=== PATIENT | male | born 1975 | race Caucasian/White ===

== ENCOUNTER → 2017-01-06 | Emergency (ER) | payer SELFPAY | END | disposition left against medical advice (07) | LOC: EDUNIT# 17:33 → ER 17:35 | DX: S80.862A Insect bite (nonvenomous), left lower leg, initial encounter (principal); Z53.21 Procedure and treatment not carried out due to patient leaving prior to being seen by health care provider ==

== ENCOUNTER 2017-01-09 14:01 | Emergency (ER) | payer BC, OTHER ==
[~2017-01-09] VITALS: Ht 190.5 cm; Wt 127.0 kg
[2017-01-09 15:25] LABS: BASOPHILS # (AUTO) 0.1 10^3/uL (0.0-0.1); BASOPHILS % (AUTO) 0 % (0-10); EOSINOPHILS % (AUTO) 9 % (0-10); LYMPHOCYTES # (AUTO) 3.3 X 10^3 (1.0-4.0); LYMPHOCYTES % (AUTO) 28 % (12-44); MEAN CORPUSCULAR HEMOGLOBIN 30 PG (25-34); MEAN CORPUSCULAR HGB CONC 34 G/DL (32-36); MEAN CORPUSCULAR VOLUME 89 FL (80-99); MEAN PLATELET VOLUME 10.7 FL (7.4-10.4); MONOCYTES # (AUTO) 0.8 X 10^3 (0.0-1.0); MONOCYTES % (AUTO) 7 % (0-12); NEUTROPHILS # (AUTO) 6.4 X 10^3 (1.8-7.8); NEUTROPHILS % (AUTO) 55 % (42-75); PLATELET COUNT 305 10^3/uL (130-400); RED BLOOD COUNT 5.72 10^6/uL (4.35-5.85); RED CELL DISTRIBUTION WIDTH 13.5 % (10.0-14.5); WHITE BLOOD COUNT 11.6 10^3/uL (4.3-11.0)
--- NOTE | 2017-01-09 15:44 | ED Integumentary General ---
General Stated Complaint: L LEG STAPH SYMPTOMS Source: patient Exam Limitations: no limitations History of Present Illness Time seen by provider: 15:42 Initial Comments To ER with reports of possible staph infection. Patient was seen here several days ago for redness and itching to the lateral left lower leg. This was believed to be a possible spider bite versus staph infection that he was started on Bactrim. Symptoms continued to progress and he went to [facility] where they started him on dapsone. Symptoms continued to progress and he went to [facility] where they stopped the Bactrim and added clindamycin a few days after that. He presents here today for the fourth encounter for this rash which is now affecting the entire left lateral leg, up to the left groin and on the shaft of his penis. He denies any systemic symptoms such as fevers or chills or malaise.. Timing/Duration: week, getting worse Severity: moderate Allergies and Home Medications Home Medications Nystatin 15 Gm Cream..g., 15 GM TP TID, #1 Apply to affected regions in groin 3 times daily Prescribed by: CHANDRIKA PAINTING on 01/09/17 1650 Constitutional: see HPI EENTM: see HPI Respiratory: no symptoms reported Cardiovascular: no symptoms reported Genitourinary: no symptoms reported Musculoskeletal: no symptoms reported Skin: see HPI Psychiatric/Neurological: No Symptoms Reported Endocrine: No Symptoms Reported Past Tphhmed-Wdkmzf-Xrbxxp Hx Patient Social History Recent Foreign Travel: No Contact w/Someone Who Travel: No Physical Exam Vital Signs Vital Sign - Last 12Hours 01/09/17 14:45 Temp 98.0 Pulse 102 Resp 16 B/P (MAP) 122/90 Capillary Refill : General Appearance: WD/WN, no apparent distress HEENT: PERRL/EOMI, normal ENT inspection Neck: non-tender, full range of motion Respiratory: no respiratory distress, no accessory muscle use Gastrointestinal: normal bowel sounds, non tender, soft Neurologic/Psychiatric: alert, normal mood/affect, oriented x 3 Skin: normal color, warm/dry Skin Problem Character: erythema Comments There is a large cluster of deeply erythematous papules that do not presley and has a purpuric type appearance to the left lateral lower leg area and there are also erythematous ulcerations about 1-2 cm on the glans of the penis and around the shaft of the penis circumferentially. Progress/Results/Core Measures Results/Orders Lab Results Laboratory Tests Test 01/09/17 15:08 01/09/17 15:09 01/09/17 16:08 Range/Units Erythrocyte Sedimentation Rate 1 0-15 MM/HR White Blood Count 11.6 H 4.3-11.0 10^3/uL Red Blood Count 5.72 4.35-5.85 10^6/uL Hemoglobin 17.3 13.3-17.7 G/DL Hematocrit 51 40-54 % Mean Corpuscular Volume 89 80-99 FL Mean Corpuscular Hemoglobin 30 25-34 PG Mean Corpuscular Hemoglobin Concent 34 32-36 G/DL Red Cell Distribution Width 13.5 10.0-14.5 % Platelet Count 305 130-400 10^3/uL Mean Platelet Volume 10.7 H 7.4-10.4 FL Neutrophils (%) (Auto) 55 42-75 % Lymphocytes (%) (Auto) 28 12-44 % Monocytes (%) (Auto) 7 0-12 % Eosinophils (%) (Auto) 9 0-10 % Basophils (%) (Auto) 0 0-10 % Neutrophils # (Auto) 6.4 1.8-7.8 X 10^3 Lymphocytes # (Auto) 3.3 1.0-4.0 X 10^3 Monocytes # (Auto) 0.8 0.0-1.0 X 10^3 Eosinophils # (Auto) 1.0 H 0.0-0.3 10^3/uL Basophils # (Auto) 0.1 0.0-0.1 10^3/uL Sodium Level 138 135-145 MMOL/L Potassium Level 4.1 3.6-5.0 MMOL/L Chloride Level 102 98-107 MMOL/L Carbon Dioxide Level 26 21-32 MMOL/L Anion Gap 10 5-14 MMOL/L Blood Urea Nitrogen 12 7-18 MG/DL Creatinine 1.00 0.60-1.30 MG/DL Estimat Glomerular Filtration Rate > 60 BUN/Creatinine Ratio 12 Glucose Level 107 H 70-105 MG/DL Calcium Level 9.2 8.5-10.1 MG/DL Total Bilirubin 1.1 H 0.1-1.0 MG/DL Aspartate Amino Transf (AST/SGOT) 28 5-34 U/L Alanine Aminotransferase (ALT/SGPT) 39 0-55 U/L Alkaline Phosphatase 97 40-136 U/L C-Reactive Protein High Sensitivity 0.15 0.00-0.50 MG/DL Total Protein 7.0 6.4-8.2 G/DL Albumin 4.3 3.2-4.5 G/DL Urine Color YELLOW Urine Clarity SLIGHTLY CLOUDY Urine pH 6 5-9 Urine Specific Crouse 1.010 L 1.016-1.022 Urine Protein NEGATIVE NEGATIVE Urine Glucose (UA) NEGATIVE NEGATIVE Urine Ketones NEGATIVE NEGATIVE Urine Nitrite NEGATIVE NEGATIVE Urine Bilirubin NEGATIVE NEGATIVE Urine Urobilinogen NORMAL NORMAL MG/DL Urine Leukocyte Esterase NEGATIVE NEGATIVE Urine RBC (Auto) NEGATIVE NEGATIVE Urine RBC NONE /HPF Urine WBC 0-2 /HPF Urine Crystals NONE /LPF Urine Bacteria NEGATIVE /HPF Urine Casts NONE /LPF Urine Mucus LARGE H /LPF Urine Culture Indicated NO My Orders Orders - CHANDRIKA PAINTING APRN Cbc With Automated Diff (01/09/17 14:47) Comprehensive Metabolic Panel (01/09/17 14:47) Erythrocyte Sedimentation Rate (01/09/17 15:47) Hs C Reactive Protein (01/09/17 15:47) Saline Lock/Iv-Start (01/09/17 15:47) Syphilis Antibody Screen (01/09/17 15:47) Ua Culture If Indicated (01/09/17 15:47) Chlamydia Dna Urine Test (01/09/17 15:47) Neis Soren Dna Urine Test (01/09/17 15:47) Vital Signs/I&O Vital Sign - Last 12Hours 01/09/17 14:45 Temp 98.0 Pulse 102 Resp 16 B/P (MAP) 122/90 Departure Impression Impression: Primary Impression: Papulovesicular rash Disposition: 01 HOME, SELF-CARE Condition: Stable Departure-Patient Inst. Decision time for Depature: 16:49 Referrals: [facility] (PCP/Family) Primary Care Physician Patient Instructions: NO INSTRUCTIONS GIVEN Add. Discharge Instructions: 1. Medication as directed 2. Return to ER for any concerns 3. Do not take the Bactrim or the dapsone. Continue the clindamycin. Add the antifungal. Scripts Fluconazole (Diflucan) 150 Mg Tablet 150 MG PO DAILY, #3 TAB Prov: CHANDRIKA PAINTING APRN 01/09/17 Nystatin (Nystatin) 15 Gm Cream..g. 15 GM TP TID, #1 TUBE Apply to affected regions in groin 3 times daily Prov: CHANDRIKA PAINTING APRN 01/09/17 CHANDRIKA PAINTING APRN January 09, 2017 15:44
[2017-01-09 15:48] LABS: ALANINE AMINOTRANSFERASE 39 U/L (0-55); ALBUMIN 4.3 G/DL (3.2-4.5); ANION GAP 10 MMOL/L (5-14); ASPARTATE AMINO TRANSFERASE 28 U/L (5-34); BILIRUBIN,TOTAL 1.1 MG/DL (0.1-1.0); BLOOD UREA NITROGEN 12 MG/DL (7-18); BUN/CREATININE RATIO 12; CALCIUM 9.2 MG/DL (8.5-10.1); CARBON DIOXIDE 26 MMOL/L (21-32); CHLORIDE 102 MMOL/L (98-107); GFR ESTIMATED > 60; GLUCOSE 107 MG/DL (70-105); POTASSIUM 4.1 MMOL/L (3.6-5.0); SODIUM 138 MMOL/L (135-145)
[2017-01-09 16:21] LABS: BILIRUBIN,URINE NEGATIVE (NEGATIVE); KETONES,URINE NEGATIVE (NEGATIVE); LEUKOCYTE ESTERASE ,URINE NEGATIVE (NEGATIVE); NITRITE,URINE NEGATIVE (NEGATIVE); PH,URINE 6 (5-9); PROTEIN,URINE NEGATIVE (NEGATIVE); UROBILINOGEN,URINE NORMAL (NORMAL)
[2017-01-09 16:31] LABS: WBC,URINE 0-2 /HPF
[2017-01-09] MEDS ORDERED: NYST15CR TP (16:50)
[2017-01-09] MEDS ORDERED: FLUC150T PO (16:57)
[2017-01-09 17:07] VITALS: BP 133/83
[2017-01-12 15:19] LABS: SYPHILIS SCREEN PT Non-Reactive
== END 2017-01-09 17:07 | disposition home or self-care (01) ==
LOC: EDUNIT# 14:01 → ER 14:03
DX: R23.8 Other skin changes (principal)
CPT/HCPCS: 36415; 80053; 81000; 85025; 85652; 86141; 86780; 87491; 87591

== ENCOUNTER 2017-12-16 16:35 | Emergency (ER) | payer OTHER, BC ==
[~2017-12-16] VITALS: Ht 190.5 cm; Wt 117.9 kg
[~2017-12-16 16:35] MED LIST: FLUC150T PO; NYST15CR TP
[2017-12-16] MEDS ORDERED: TETANUS,DIPTH,PERTUSS P/F (BOOSTRIX) 0.5 ML VIAL IM ONE (17:15)
[2017-12-16] MEDS ORDERED: LIDOCAINE 2% 20 ML (XYLOCAINE) VIAL INJ ONE (17:15)
[2017-12-16] MEDS ORDERED: SULF1TAB35 PO (17:16)
[2017-12-16] MEDS ORDERED: CYCL5TAB PO (17:16)
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
[2017-12-16] MEDS ORDERED: NS 100 ML (IVPB) BAG IV ONE (18:45)
[2017-12-16] MEDS ORDERED: IOHEXOL 350 MG/ML 100 ML (OMNIPAQUE 350) VIAL IV ONE (18:45)
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
[2017-12-16 19:39] VITALS: BP 138/84
== END 2017-12-16 19:39 | disposition home or self-care (01) ==
LOC: EDUNIT# 16:35 → ER 16:37
DX: S41.132A Puncture wound without foreign body of left upper arm, initial encounter (principal); I86.8 Varicose veins of other specified sites; R40.2142 Coma scale, eyes open, spontaneous, at arrival to emergency department; R40.2252 Coma scale, best verbal response, oriented, at arrival to emergency department; R40.2362 Coma scale, best motor response, obeys commands, at arrival to emergency department; Z23 Encounter for immunization; Z98.890 Other specified postprocedural states; Z88.1 Allergy status to other antibiotic agents; V59.40XA Driver of pick-up truck or van injured in collision with unspecified motor vehicles in traffic accident, initial encounter
CPT/HCPCS: 12001; 71260; 72125; 73030; 73080; 90471; 90715

== ENCOUNTER → 2023-06-23 | Outpatient (RCR) | payer BC ==
[~2023-06-23] MED LIST changes: +CYCL5TAB PO; -NYST15CR TP; +NYST15CR35 TP; +SULF1TAB38 PO
== END | disposition home or self-care (01) ==
PROVIDERS: ATTEND Family Medicine
DX: M54.50 Low back pain, unspecified (principal)

== ENCOUNTER 2023-07-03 11:27 | Outpatient (RCR) | payer BC | END 2023-07-23 11:33 | disposition home or self-care (01) | PROVIDERS: ATTEND Family Medicine | DX: M54.50 Low back pain, unspecified (principal); M25.559 Pain in unspecified hip ==